=== PATIENT | male | born 1975 | race Hispanic/Latino ===

== ENCOUNTER 2017-08-03 06:20 | Day surgery (SDC) | payer OTHER ==
[2017-07-31 12:06] VITALS: BP 128/76
[2017-07-31 12:29] LABS: BASOPHILS % (AUTO) 0.9 % (0.0-5.0); EOSINOPHILS % (AUTO) 1.3 % (0.0-8.0); HEMATOCRIT 44.6 % (42-54); LYMPHOCYTES % (AUTO) 27.9 % (21.0-51.0); MEAN CORPUSCULAR HEMOGLOBIN 29.6 pg (27.0-33.0); MEAN CORPUSCULAR HGB CONC 34.1 g/dL (32.0-36.0); MEAN CORPUSCULAR VOLUME 86.8 fL (79-99); MONOCYTES % (AUTO) 6.3 % (3.0-13.0); NEUTROPHILS % (AUTO) 63.6 % (40.0-77.0); PLATELET COUNT (AUTO) 194 K/uL (130-400); RED BLOOD CELL COUNT(AUTO) 5.14 MIL/uL (4.50-6.20); RED CELL DISTRIBUTION WIDTH 13.8 % (11.0-15.5)
[2017-07-31 12:40] LABS: CREATININE 0.8 mg/dL (0.5-1.5)
[~2017-08-03] VITALS: Ht 171.3 cm; Wt 105.4 kg
[2017-08-03] VITALS (19 sets, daily range): BP systolic 98–145; BP diastolic 55–84
[2017-08-03] MEDS: CEFAZOLIN SODIUM 1 GM VIAL IVP SCH ×2 (06:00→08:50)
[2017-08-03] MEDS: LACTATED RINGERS 1000ML 1,000 ML IV SCH ×2 (07:21→19:09)
[2017-08-03] MEDS ORDERED: ISOVUE-370 50ML VIAL IV ONE (07:54)
[2017-08-03] MEDS ORDERED: ONDANSETRON HCL 4 MG/2 ML VIAL ONE ×2 (07:57→08:02)
[2017-08-03] MEDS ORDERED: DEXAMETHASONE SOD PHOSPHATE 10MG/ML 1ML VIAL ONE ×2 (07:57→08:02)
[2017-08-03] MEDS ORDERED: FENTANYL CITRATE PF 50 MCG/1 ML 2ML VIAL ONE ×3 (07:57→09:54)
[2017-08-03] MEDS ORDERED: LIDOCAINE PF 2% 5ML ABBOJECT ONE (07:57)
[2017-08-03] MEDS ORDERED: MIDAZOLAM HCL 1 MG/ML 2ML VIAL ONE (07:57)
[2017-08-03] MEDS ORDERED: NEOSTIGMINE METHYLSULFATE 1MG/ML IV ONE (07:57)
[2017-08-03] MEDS ORDERED: PROPOFOL 10 MG/ML 20ML VIAL IV ONE (07:57)
[2017-08-03] MEDS ORDERED: GLYCOPYRROLATE 0.2 MG/ML 5 ML VIAL ONE (07:57)
[2017-08-03] MEDS ORDERED: SUCCINYLCHOLINE 200MG/10ML SYR ONE (07:57)
[2017-08-03] MEDS ORDERED: PHENYLEPHRINE HCL 10 MG/ML 1ML VIAL IV ONE (08:01)
[2017-08-03] MEDS ORDERED: SODIUM CHLORIDE 0.9% 10 ML VIAL ONE (08:01)
[2017-08-03] MEDS ORDERED: METOCLOPRAMIDE 10 MG/2 ML VIAL ONE (08:02)
[2017-08-03] MEDS ORDERED: MEPERIDINE-PF 25 MG/ML SYG ONE (10:45)
== END 2017-08-03 12:41 | disposition home or self-care (01) ==
LOC: DAH 06:20
PROVIDERS: ATTEND Surgery
DX: N20.1 Calculus of ureter (principal); Z68.33 Body mass index [BMI] 33.0-33.9, adult
CPT/HCPCS: 36415; 52356; 76000; 80048; 82360; 85025; 87088; 88300; A4218; A4358; C1758; C1769; C2617; J0330; J0690; J1100 ×2; J2001; J2175; J2250; J2370; J2405 ×2; J2704; J2710; J2765; J3010 ×3; J3490; J7120 ×2; Q9967